=== PATIENT | male | born 1940 | race Caucasian/White ===

== ENCOUNTER → 2021-03-19 | Outpatient (CLI) | payer MEDICARE ==
--- NOTE | 2021-04-02 19:00 | P.HOLTER ---
20 for a Holter monitor shows sinus mechanism heart racing from 59-89 beats minute and 74 beats a minute Infrequent PVCs IVCD with a mildly prolonged CA interval Infrequent PACs No sustained or nonsustained arrhythmias
--- NOTE | 2021-04-03 17:12 | HM ---
Date: 04/02/21 18:57 Initialization Date: 04/02/21 18:57 20 for a Holter monitor shows sinus mechanism heart racing from 59-89 beats minute and 74 beats a minute Infrequent PVCs IVCD with a mildly prolonged ND interval Infrequent PACs No sustained or nonsustained arrhythmias MTDD
== END | disposition home or self-care (01) ==
LOC: RADECHMAIN 12:00
PROVIDERS: ATTEND Family Medicine
DX: I49.3 Ventricular premature depolarization (principal); I49.1 Atrial premature depolarization
CPT/HCPCS: 93225; 93226